=== PATIENT | male | born 1955 | race African-American/Black ===

== ENCOUNTER 2024-11-26 23:28 | Emergency (ER) | payer MEDICARE, MEDICAID ==
[~2024-11-26] VITALS: Ht 182.9 cm; Wt 96.0 kg
[2024-11-26 23:30] VITALS: O2SAT 98
[2024-11-27] MEDS: HYDROCODONE/ACETAMINOPHEN 5/325MG TABLET PO ONE (00:44)
[2024-11-27] MEDS ORDERED: MELO-104 MT (01:18)
[2024-11-27] MEDS ORDERED: HYDR-4001 MT (01:18)
[2024-11-27] MEDS: AMLODIPINE 5MG TABLET PO ONE (01:53)
[2024-11-27] MEDS: IBUPROFEN 600MG TABLET PO ONE (01:53)
[2024-11-27 03:07] LABS: HEMATOCRIT. 28.6 % (42.0-52.0); HEMOGLOBIN. 9.1 g/dL (14.0-18.0); MEAN PLATELET VOLUME 7.3 fl (7.4-10.4); PLATELET 160 x1000/uL (130-400); RED BLOOD CELL COUNT 3.34 mill/uL (4.7-6.1); RED CELL DISTRIBUTION WIDTH 18.0 % (11.6-14.6)
[2024-11-27 03:15] LABS: CREATININE 0.8 mg/dL (0.6-1.3); UREA NITROGEN BLOOD 13 mg/dL (9-23)
[2024-11-27] MEDS ORDERED: AMLO5TAB6 MT (03:18)
[2024-11-27 03:37] VITALS: BP 184/87; PULSE 96; RESP 16; TEMP 36.8; O2SAT 96
[2024-11-27 05:28] LABS: BAND% 6.0 % (1.0-6.0); EOSINOPHILS % MANUAL 1.0 % (0.0-5.0); LYMPHOCYTES % MANUAL 32.0 % (20.0-50.0); METAMYELOCYTES % 2.0 % (0-0); MONOCYTES % MANUAL 4.0 % (2.0-8.0); MYELOCYTES % 1.0 % (0-0); NEUTROPHILS % MANUAL 54.0 % (45.0-75.0); NUCLEATED RED BLOOD CELLS 18 /100 WBC; PLATELET ESTIMATE NORMAL
== END 2024-11-27 03:50 | disposition home or self-care (01) ==
LOC: ER 23:28
DX: M25.562 Pain in left knee (principal); M25.561 Pain in right knee; D64.9 Anemia, unspecified; E78.00 Pure hypercholesterolemia, unspecified; I10 Essential (primary) hypertension; M19.90 Unspecified osteoarthritis, unspecified site; Z79.1 Long term (current) use of non-steroidal anti-inflammatories (NSAID)
CPT/HCPCS: 36415; 73562; 80048; 85025; 93970; 99285